=== PATIENT | male | born 1945 | race Caucasian/White ===

== ENCOUNTER 2017-11-08 09:42 | Inpatient (IN) | payer MEDICARE, OTHER ==
[~2017-11-08 09:42] MED LIST: ETOMIDATE 20 MG INJ; SUCCINYLCHOLINE CHLORIDE 100 MG/5 ML SYG IV
[2017-11-08] MEDS: HYDROmorphONE 1 MG/ML SYG IV (11:56)
[2017-11-08] MEDS: SOD CHLORIDE 0.9% 1,000 ML IV ×2 (11:56→16:55)
[2017-11-08] MEDS: ONDANSETRON 4 MG INJ IV (11:56)
[2017-11-08] MEDS ORDERED: LORAZEPAM 2 MG INJ ×2 (12:09→12:15)
[2017-11-08] MEDS: SOD CHLORIDE 0.9% 100 ML ×2 (12:09→15:12)
[2017-11-08] MEDS: IODIXANOL LOCM 100 ML BTL ×2 (12:09→15:12)
[2017-11-08] MEDS: SUCCINYLCHOLINE CHLORIDE 100 MG/5 ML SYG IV (12:35)
[2017-11-08] MEDS: ETOMIDATE 20 MG INJ IV (12:35)
[2017-11-08 13:01] LABS: ADD MAN DIFF? NO
[2017-11-08 13:02] LABS: BASOPHIL # 0.1 10^3/ul (0.0-0.1); BASOPHILS % 0.5 % (0.0-2.0); EOSINOPHILS % 0.1 % (0.0-7.0); HEMATOCRIT 42.5 % (42.0-52.0); LYMPHOCYTES # 2.2 10^3/ul (0.8-2.9); LYMPHOCYTES % 11.6 % (15.0-51.0); MEAN CORPUSCULAR HEMOGLOBIN 29.4 pg (29.0-33.0); MEAN CORPUSCULAR HGB CONC 32.9 g/dl (32.0-37.0); MEAN CORPUSCULAR VOLUME 89.3 fl (82.0-101.0); MEAN PLATELET VOLUME 11.5 fl (7.4-10.4); MONOCYTES % 5.1 % (0.0-11.0); NEUTROPHIL # 15.3 10^3/ul (1.6-7.5); NEUTROPHILS % 81.9 % (39.0-77.0); PLATELET COUNT 458 10^3/UL (140-415); RED BLOOD COUNT 4.76 10^6/ul (4.70-6.10); RED CELL DISTRIBUTION WIDTH 13.7 % (11.5-14.5)
[2017-11-08 13:02] LABS: WHITE BLOOD COUNT 18.6 10^3/ul (4.8-10.8)
[2017-11-08] MEDS: VANCOMYCIN 1 GM (PMX) 250 ML IVPB (13:30)
[2017-11-08] MEDS: LORAZEPAM 2 MG INJ IV ×2 (13:30)
[2017-11-08 13:33] LABS: INR 1.08; PROTIME 14.1 Sec (11.9-14.9); PT RATIO 1.1
[2017-11-08 13:35] LABS: PARTIAL THROMBOPLASTIN TIME 32.1 Sec (25.0-35.0)
[2017-11-08 13:45] LABS: ALANINE AMINOTRANSFERASE 36 IU/L (13-69); ALBUMIN 4.2 g/dl (3.3-4.9); ALKALINE PHOSPHATASE 103 IU/L (42-121); ANION GAP 23 (8-16); ASPARTATE AMINO TRANSFERASE 24 IU/L (15-46); BILIRUBIN,INDIRECT 1.3 mg/dl (0-1.1); BILIRUBIN,TOTAL 1.3 mg/dl (0.2-1.3); BLOOD UREA NITROGEN 27 mg/dl (7-20); CALCIUM 9.2 mg/dl (8.4-10.2); CARBON DIOXIDE 21 mmol/L (21-31); CHLORIDE 95 mmol/L (97-110); CREATININE 1.31 mg/dl (0.61-1.24); GLUCOSE 280 mg/dl (70-220); LIPASE 24 U/L (23-300); POTASSIUM 3.9 mmol/L (3.5-5.1); SODIUM 135 mmol/L (135-144); TOTAL PROTEIN 7.2 g/dl (6.1-8.1)
[2017-11-08 13:56] LABS: TROPONIN-I 0.017 ng/ml (0.00-0.12)
[2017-11-08 14:01] LABS: AMYLASE < 30 U/L (11-123)
[2017-11-08 14:30] LABS: CREATINE KINASE 71 IU/L (23-200)
[2017-11-08 14:42] LABS: CK INDEX 2.1; CK-MB 1.46 ng/ml (0.0-2.4); TROPONIN-I 0.014 ng/ml (0.00-0.12)
[2017-11-08 15:15] LABS: ADD UMIC YES; UR ASCORBIC ACID NEGATIVE (NEGATIVE); UR BACTERIA MANY /HPF (NONE SEEN); UR BILIRUBIN (Dip) NEGATIVE (NEGATIVE); UR BLOOD (Dip) 2+ mg/dL (NEGATIVE); UR CLARITY CLOUDY (CLEAR); UR COLOR AMBER (YELLOW); UR GLUCOSE (Dip) 3+ mg/dL (NEGATIVE); UR HYALINE CAST FEW /HPF (NONE SEEN); UR KETONES (Dip) NEGATIVE (NEGATIVE); UR LEUKOCYTE ESTERASE (Dip) 3+ Leu/ul (NEGATIVE); UR MUCUS FEW /HPF (NONE SEEN); UR NITRITE (Dip) NEGATIVE (NEGATIVE); UR RBC 14 /HPF (0-5); UR SPECIFIC GRAVITY (Dip) 1.036 (1.003-1.030); UR TOTAL PROTEIN (Dip) 2+ mg/dl (NEGATIVE); UR UROBILINOGEN (Dip) 1+ mg/dL (NEGATIVE); UR WBC 125 /HPF (0-5)
[2017-11-08] MEDS: SODIUM CHLORIDE 0.9% 1L BAG IV* (15:15)
[2017-11-08] MEDS: PROPOFOL 100 ML IV (15:15)
[2017-11-08] MEDS: CEFEPIME 2GM/50 ML (PMX) 50 ML IVPB (15:16)
[2017-11-08 15:47] LABS: AADO2 Arterial 186.8 mmHg (7.0-24.0); Allen Test ACCEPTAB; Arterial Base Excess -1.7 mmol/L (-3.0-3); Arterial Blood Gas Oxygen Sat 99.5 mmHG (95.0-100.0); Arterial COHb 0.3 % (0.0-3.0); Arterial Fraction of Oxyhgb 98.6 % (93.0-99.0); Arterial HCO3 23.4 mmol/L (22.0-26.0); Arterial MetHb 0.6 % (0.0-1.5); Arterial Total Hemglobin 12.5 g/dl (12.0-18.0); MODE VENT - AC; Site Right Radial
[2017-11-08 15:50] LABS: LACTIC ACID 1.9 mmol/L (0.5-2.0)
[2017-11-08] MEDS ORDERED: NACL 0.9% 3 ML SYG IV (17:00)
[2017-11-08] MEDS ORDERED: ONDANSETRON 4 MG INJ IV (17:00)
[2017-11-08] MEDS: CEFTRIAXONE 1 GM/50 ML (PMX) 50 ML IVPB (19:35)
[2017-11-09] MEDS: PROPOFOL 100 ML IV ×5 (02:31→20:58)
[2017-11-09 04:34] LABS: WHITE BLOOD COUNT 14.1 10^3/ul (4.8-10.8)
[2017-11-09 04:34] LABS: ABNORMAL IP MESSAGE 1; HEMATOCRIT 31.6 % (42.0-52.0); MEAN CORPUSCULAR HEMOGLOBIN 29.8 pg (29.0-33.0); MEAN CORPUSCULAR HGB CONC 34.8 g/dl (32.0-37.0); MEAN CORPUSCULAR VOLUME 85.6 fl (82.0-101.0); MEAN PLATELET VOLUME 11.5 fl (7.4-10.4); PLATELET COUNT 279 10^3/UL (140-415); POSITIVE DIFF @See below; RED BLOOD COUNT 3.69 10^6/ul (4.70-6.10); RED CELL DISTRIBUTION WIDTH 14.2 % (11.5-14.5)
[2017-11-09 04:48] LABS: ALANINE AMINOTRANSFERASE 36 IU/L (13-69); ALBUMIN 2.6 g/dl (3.3-4.9); ALBUMIN/GLOBULIN RATIO 1.04; ALKALINE PHOSPHATASE 63 IU/L (42-121); ANION GAP 13 (8-16); ASPARTATE AMINO TRANSFERASE 19 IU/L (15-46); BILIRUBIN,INDIRECT 0.9 mg/dl (0-1.1); BILIRUBIN,TOTAL 0.9 mg/dl (0.2-1.3); BLOOD UREA NITROGEN 31 mg/dl (7-20); CALCIUM 7.8 mg/dl (8.4-10.2); CARBON DIOXIDE 20 mmol/L (21-31); CHLORIDE 104 mmol/L (97-110); CHOLESTEROL 55 mg/dl (100-200); CREATININE 1.05 mg/dl (0.61-1.24); GLUCOSE 248 mg/dl (70-220); HDL CHOLESTEROL 18 mg/dl (31-75); LDL CHOLESTEROL,CALCULATED 18 mg/dl; MAGNESIUM 1.4 mg/dl (1.7-2.5); PHOSPHORUS 2.4 mg/dl (2.5-4.9); POTASSIUM 3.7 mmol/L (3.5-5.1); SODIUM 133 mmol/L (135-144); TOTAL PROTEIN 5.1 g/dl (6.1-8.1); TRIGLYCERIDES 96 mg/dl (0-149)
[2017-11-09 05:07] LABS: ADD MAN DIFF? YES
[2017-11-09] MEDS: PANTOPRAZOLE 40 MG INJ IV (06:24)
[2017-11-09] MEDS: SOD CHLORIDE 0.9% 1,000 ML IV ×3 (06:25→14:42)
[2017-11-09] MEDS ORDERED: MAGNESIUM SULFATE (GM) 50% 2 ML INJ IM (07:00)
[2017-11-09] MEDS: MAGNESIUM SULFATE 3 GM in DEXTROSE 5% 100 ML IVPB (08:17)
[2017-11-09 08:36] LABS: ANISOCYTOSIS 1+ (0-0); BAND NEUTROPHILS #M 1.4 10^3/ul (0.0-0.6); BAND NEUTROPHILS % (M) 10 % (0-4); BASOPHIL #M 0.1 10^3/ul (0.0-0.0); BASOPHILS % (M) 1 % (0-2); BURR CELLS 1+ (0-0); GIANT THROMBO% (M) 3 % (0-0); LYMPHOCYTES #M 2.5 10^3/ul (0.8-2.9); LYMPHOCYTES % (M) 18 % (15-51); MICROCYTOSIS 1+ (0-0); MONOCYTE #M 0.7 10^3/ul (0.3-0.9); MONOCYTES % (M) 5 % (0-11); PLATELET ESTIMATE NORMAL; REACTIVE LYMPHOCYTES #M 0.5 10^3/ul (0.0-0.0); REACTIVE LYMPHOCYTES% (M) 4 % (0-0); SEG NEUT #M 8.9 10^3/ul (1.6-7.5); SEGMENTED NEUTROPHILS (M) % 62 % (39-77); SMUDGE%M 5 % (0-0)
[2017-11-09 09:04] LABS: HEMOGLOBIN A1C 8.9 % (0-5.9)
[2017-11-09] MEDS: INSULIN GLARGINE [LANtus] 3 ML PEN SC ×2 (12:00→12:58)
[2017-11-09] MEDS ORDERED: GLUCOSE GEL 15 GRAM TUBE PO ×2 (12:00)
[2017-11-09] MEDS ORDERED: DEXTROSE 50% 50 ML SYRINGE IV ×2 (12:00)
[2017-11-09] MEDS ORDERED: GLUCOSE GEL 15 GRAM TUBE BUCCAL (12:00)
[2017-11-09] MEDS ORDERED: GLUCAGON 1 MG INJ IM (12:00)
[2017-11-09] MEDS: INSULIN ASPART [NOVOLOG] 3 ML PEN SC ×3 (13:00→21:07)
[2017-11-09] MEDS: CEFTRIAXONE 1 GM/50 ML (PMX) 50 ML IVPB (17:07)
[2017-11-09] MEDS: TAMSULOSIN (SR) 0.4 MG CAP PO (20:58)
[2017-11-10] MEDS: PROPOFOL 100 ML IV ×2 (01:00→06:26)
[2017-11-10] MEDS: ACCU-CHEK XX (02:19)
[2017-11-10] MEDS: INSULIN ASPART [NOVOLOG] 3 ML PEN SC ×6 (02:46→20:49)
[2017-11-10] MEDS: SOD CHLORIDE 0.9% 1,000 ML IV ×3 (02:47→12:46)
[2017-11-10] MEDS: PANTOPRAZOLE 40 MG INJ IV (05:32)
[2017-11-10 06:16] LABS: ADD MAN DIFF? NO
[2017-11-10 06:18] LABS: WHITE BLOOD COUNT 11.1 10^3/ul (4.8-10.8)
[2017-11-10 06:18] LABS: BASOPHIL # 0.1 10^3/ul (0.0-0.1); BASOPHILS % 0.4 % (0.0-2.0); EOSINOPHILS # 0.1 10^3/ul (0.0-0.5); EOSINOPHILS % 0.9 % (0.0-7.0); HEMOGLOBIN 11.3 g/dl (14.0-18.0); MEAN CORPUSCULAR HEMOGLOBIN 29.4 pg (29.0-33.0); MEAN CORPUSCULAR HGB CONC 34.2 g/dl (32.0-37.0); MEAN CORPUSCULAR VOLUME 85.9 fl (82.0-101.0); MEAN PLATELET VOLUME 11.8 fl (7.4-10.4); MONOCYTE # 1.3 10^3/ul (0.3-0.9); MONOCYTES % 11.3 % (0.0-11.0); NEUTROPHIL # 8.7 10^3/ul (1.6-7.5); PLATELET COUNT 281 10^3/UL (140-415); RED BLOOD COUNT 3.84 10^6/ul (4.70-6.10); RED CELL DISTRIBUTION WIDTH 14.3 % (11.5-14.5)
[2017-11-10 06:32] LABS: LACTIC ACID 1.1 mmol/L (0.5-2.0)
[2017-11-10 06:45] LABS: ANION GAP 13 (8-16); BLOOD UREA NITROGEN 19 mg/dl (7-20); CARBON DIOXIDE 19 mmol/L (21-31); CHLORIDE 110 mmol/L (97-110); CREATININE 0.82 mg/dl (0.61-1.24); GLUCOSE 150 mg/dl (70-220); MAGNESIUM 2.4 mg/dl (1.7-2.5); PHOSPHORUS 2.4 mg/dl (2.5-4.9); POTASSIUM 3.5 mmol/L (3.5-5.1); SODIUM 138 mmol/L (135-144)
[2017-11-10] MEDS: INSULIN GLARGINE [LANtus] 3 ML PEN SC (08:39)
[2017-11-10 12:32] LABS: AADO2 Arterial 62.8 mmHg (7.0-24.0); Allen Test ACCEPTAB; Arterial Base Excess -3.2 mmol/L (-3.0-3); Arterial COHb 0.3 % (0.0-3.0); Arterial Fraction of Oxyhgb 97.4 % (93.0-99.0); Arterial HCO3 20.6 mmol/L (22.0-26.0); Arterial MetHb 0.3 % (0.0-1.5); Arterial Total Hemglobin 12.7 g/dl (12.0-18.0); Arterial pCO2 33.1 mmhg (35-45); Blood Gas PS 10; MODE VENT - CPAP; Site Right Radial
[2017-11-10] MEDS: CEFTRIAXONE 1 GM/50 ML (PMX) 50 ML IVPB (16:39)
[2017-11-10] MEDS: hydrALAzine 20 MG INJ IV (20:38)
[2017-11-10] MEDS: morphine 2 MG INJ IV (21:45)
[2017-11-11] MEDS: hydrALAzine 20 MG INJ IV ×3 (00:37→12:50)
[2017-11-11] MEDS: INSULIN ASPART [NOVOLOG] 3 ML PEN SC ×6 (01:00→20:54)
[2017-11-11] MEDS: ACCU-CHEK XX (01:55)
[2017-11-11] MEDS: SOD CHLORIDE 0.9% 1,000 ML IV ×2 (04:46→13:39)
[2017-11-11 05:44] LABS: ADD MAN DIFF? NO
[2017-11-11 06:03] LABS: WHITE BLOOD COUNT 10.9 10^3/ul (4.8-10.8)
[2017-11-11 06:03] LABS: BASOPHIL # 0.1 10^3/ul (0.0-0.1); BASOPHILS % 0.5 % (0.0-2.0); EOSINOPHILS # 0.2 10^3/ul (0.0-0.5); EOSINOPHILS % 2.2 % (0.0-7.0); HEMATOCRIT 35.1 % (42.0-52.0); HEMOGLOBIN 11.7 g/dl (14.0-18.0); LYMPHOCYTES # 1.2 10^3/ul (0.8-2.9); LYMPHOCYTES % 10.6 % (15.0-51.0); MEAN CORPUSCULAR HGB CONC 33.3 g/dl (32.0-37.0); MEAN CORPUSCULAR VOLUME 87.1 fl (82.0-101.0); MEAN PLATELET VOLUME 11.6 fl (7.4-10.4); MONOCYTE # 0.9 10^3/ul (0.3-0.9); MONOCYTES % 8.5 % (0.0-11.0); NEUTROPHIL # 8.5 10^3/ul (1.6-7.5); NEUTROPHILS % 77.8 % (39.0-77.0); PLATELET COUNT 328 10^3/UL (140-415); RED BLOOD COUNT 4.03 10^6/ul (4.70-6.10); RED CELL DISTRIBUTION WIDTH 13.8 % (11.5-14.5)
[2017-11-11] MEDS: PANTOPRAZOLE 40 MG INJ IV (06:07)
[2017-11-11 06:20] LABS: ANION GAP 13 (8-16); BLOOD UREA NITROGEN 13 mg/dl (7-20); CALCIUM 8.4 mg/dl (8.4-10.2); CARBON DIOXIDE 20 mmol/L (21-31); CHLORIDE 110 mmol/L (97-110); CREATININE 0.67 mg/dl (0.61-1.24); GLUCOSE 100 mg/dl (70-220); POTASSIUM 3.2 mmol/L (3.5-5.1); SODIUM 140 mmol/L (135-144)
[2017-11-11] MEDS: POTASSIUM CHLORIDE 100 ML IVPB (09:31)
[2017-11-11] MEDS: INSULIN GLARGINE [LANtus] 3 ML PEN SC (09:33)
[2017-11-11] MEDS: morphine 2 MG INJ IV (12:50)
[2017-11-11] MEDS ORDERED: LORAZEPAM 2 MG INJ IV (15:30)
[2017-11-11] MEDS: CEFTRIAXONE 1 GM/50 ML (PMX) 50 ML IVPB (17:16)
[2017-11-11] MEDS: ATORVASTATIN 20 MG TAB PO (20:49)
[2017-11-12] MEDS: ACCU-CHEK XX (02:00)
[2017-11-12] MEDS: INSULIN ASPART [NOVOLOG] 3 ML PEN SC ×6 (02:03→20:43)
[2017-11-12] MEDS: PANTOPRAZOLE 40 MG INJ IV (05:30)
[2017-11-12 05:58] LABS: ADD MAN DIFF? NO
[2017-11-12 06:10] LABS: WHITE BLOOD COUNT 9.9 10^3/ul (4.8-10.8)
[2017-11-12 06:10] LABS: BASOPHIL # 0.1 10^3/ul (0.0-0.1); BASOPHILS % 0.7 % (0.0-2.0); EOSINOPHILS # 0.3 10^3/ul (0.0-0.5); EOSINOPHILS % 3.1 % (0.0-7.0); HEMATOCRIT 34.6 % (42.0-52.0); HEMOGLOBIN 11.4 g/dl (14.0-18.0); LYMPHOCYTES # 1.5 10^3/ul (0.8-2.9); LYMPHOCYTES % 15.2 % (15.0-51.0); MEAN CORPUSCULAR HEMOGLOBIN 29.1 pg (29.0-33.0); MEAN CORPUSCULAR HGB CONC 32.9 g/dl (32.0-37.0); MEAN CORPUSCULAR VOLUME 88.3 fl (82.0-101.0); MEAN PLATELET VOLUME 11.2 fl (7.4-10.4); MONOCYTE # 0.9 10^3/ul (0.3-0.9); MONOCYTES % 8.8 % (0.0-11.0); NEUTROPHIL # 7.1 10^3/ul (1.6-7.5); NEUTROPHILS % 71.8 % (39.0-77.0); PLATELET COUNT 381 10^3/UL (140-415); RED BLOOD COUNT 3.92 10^6/ul (4.70-6.10)
[2017-11-12 06:48] LABS: ANION GAP 10 (8-16); BLOOD UREA NITROGEN 22 mg/dl (7-20); CALCIUM 8.5 mg/dl (8.4-10.2); CARBON DIOXIDE 22 mmol/L (21-31); CHLORIDE 111 mmol/L (97-110); CREATININE 0.81 mg/dl (0.61-1.24); GLUCOSE 172 mg/dl (70-220); PHOSPHORUS 2.4 mg/dl (2.5-4.9); POTASSIUM 3.5 mmol/L (3.5-5.1); SODIUM 139 mmol/L (135-144)
[2017-11-12] MEDS: ASPIRIN 81 MG TAB PO (08:15)
[2017-11-12] MEDS: INSULIN GLARGINE [LANtus] 3 ML PEN SC (08:19)
[2017-11-12] MEDS ORDERED: morphine LIQ (10 MG/5 ML) CUP PO (16:00)
[2017-11-12] MEDS: CEFTRIAXONE 1 GM/50 ML (PMX) 50 ML IVPB (17:11)
[2017-11-12] MEDS: ATORVASTATIN 20 MG TAB PO (20:38)
[2017-11-12] MEDS: AMLODIPINE 10 MG TAB PO (21:26)
[2017-11-13] MEDS: ACCU-CHEK XX (02:42)
[2017-11-13] MEDS: PANTOPRAZOLE 40 MG INJ IV (05:58)
[2017-11-13] MEDS: INSULIN GLARGINE [LANtus] 3 ML PEN SC (07:56)
[2017-11-13] MEDS: INSULIN ASPART [NOVOLOG] 3 ML PEN SC ×3 (07:57→17:47)
[2017-11-13] MEDS: ASPIRIN 81 MG TAB PO (08:29)
[2017-11-13] MEDS: AMLODIPINE 10 MG TAB PO (08:29)
[2017-11-13] MEDS: LISINOPRIL 5 MG TAB PO (10:55)
[2017-11-13] MEDS: CEFTRIAXONE 1 GM/50 ML (PMX) 50 ML IVPB (17:38)
== END 2017-11-13 18:50 | disposition home or self-care (01) | DRG 871 ==
LOC: ICU 15:52 → MS2 11-11 18:15 → E/R 09:42 → ICU 11-09 08:04
PROC: 0BH17EZ Insertion of Endotracheal Airway into Trachea, Via Natural or Artificial Opening (ICD-10-PCS; principal; 2017-11-08)
PROC: 5A1945Z Respiratory Ventilation, 24-96 Consecutive Hours (ICD-10-PCS; 2017-11-08)
PROC: 009U3ZZ Drainage of Spinal Canal, Percutaneous Approach (ICD-10-PCS; 2017-11-08)
DX: A41.9 Sepsis, unspecified organism (principal); J96.00 Acute respiratory failure, unspecified whether with hypoxia or hypercapnia; G93.41 Metabolic encephalopathy; N17.9 Acute kidney failure, unspecified; N12 Tubulo-interstitial nephritis, not specified as acute or chronic; N39.0 Urinary tract infection, site not specified; E11.65 Type 2 diabetes mellitus with hyperglycemia; R65.20 Severe sepsis without septic shock; N40.0 Benign prostatic hyperplasia without lower urinary tract symptoms; M54.9 Dorsalgia, unspecified; I10 Essential (primary) hypertension; B96.20 Unspecified Escherichia coli [E. coli] as the cause of diseases classified elsewhere; F17.210 Nicotine dependence, cigarettes, uncomplicated; Z79.4 Long term (current) use of insulin; Z91.81 History of falling; Z86.73 Personal history of transient ischemic attack (TIA), and cerebral infarction without residual deficits; Z79.82 Long term (current) use of aspirin
CPT/HCPCS: 31500; 36600; 70450; 71045; 71275; 74178; 76775; 80048; 80053; 80061; 81001; 82150; 82550; 82553; 82803; 82962; 83036; 83605; 83690; 83735; 84100; 84484; 85025; 85610; 85730; 87040; 87081; 87086; 93005; 93970; 94002; 94003; 94770; 96374; 96375; 97162; 99291-25

== ENCOUNTER 2017-11-29 09:02 | Emergency (ER) | payer MEDICARE ==
[2017-11-29 16:19] LABS: ADD MAN DIFF? NO
[2017-11-29 16:23] LABS: WHITE BLOOD COUNT 8.1 10^3/ul (4.8-10.8)
[2017-11-29 16:23] LABS: BASOPHIL # 0.1 10^3/ul (0.0-0.1); BASOPHILS % 1.5 % (0.0-2.0); EOSINOPHILS # 0.4 10^3/ul (0.0-0.5); EOSINOPHILS % 4.4 % (0.0-7.0); HEMOGLOBIN 13.1 g/dl (14.0-18.0); LYMPHOCYTES # 2.1 10^3/ul (0.8-2.9); LYMPHOCYTES % 26.2 % (15.0-51.0); MEAN CORPUSCULAR HEMOGLOBIN 29.2 pg (29.0-33.0); MEAN CORPUSCULAR HGB CONC 32.8 g/dl (32.0-37.0); MEAN CORPUSCULAR VOLUME 89.3 fl (82.0-101.0); MEAN PLATELET VOLUME 10.3 fl (7.4-10.4); MONOCYTE # 0.6 10^3/ul (0.3-0.9); MONOCYTES % 7.4 % (0.0-11.0); NEUTROPHIL # 4.9 10^3/ul (1.6-7.5); NEUTROPHILS % 60.4 % (39.0-77.0); PLATELET COUNT 544 10^3/UL (140-415); RED BLOOD COUNT 4.48 10^6/ul (4.70-6.10); RED CELL DISTRIBUTION WIDTH 14.1 % (11.5-14.5)
[2017-11-29] MEDS: ASPIRIN 325 MG TAB PO (16:23)
[2017-11-29 16:41] LABS: ANION GAP 16 (8-16); BLOOD UREA NITROGEN 24 mg/dl (7-20); CALCIUM 9.3 mg/dl (8.4-10.2); CARBON DIOXIDE 24 mmol/L (21-31); CHLORIDE 104 mmol/L (97-110); CREATININE 0.96 mg/dl (0.61-1.24); GLUCOSE 180 mg/dl (70-220); POTASSIUM 5.1 mmol/L (3.5-5.1); SODIUM 139 mmol/L (135-144)
[2017-11-29 16:53] LABS: B-TYPE NATRIURETIC PEPTIDE 392 PG/ML (0-125); TROPONIN-I < 0.012 ng/ml (0.00-0.12)
== END 2017-11-29 18:55 | disposition home or self-care (01) ==
LOC: E/R 09:02
DX: D69.6 Thrombocytopenia, unspecified (principal); R40.2252 Coma scale, best verbal response, oriented, at arrival to emergency department; I10 Essential (primary) hypertension; R40.2142 Coma scale, eyes open, spontaneous, at arrival to emergency department; R40.2362 Coma scale, best motor response, obeys commands, at arrival to emergency department; Z79.84 Long term (current) use of oral hypoglycemic drugs
CPT/HCPCS: 71045; 80048; 83880; 84484; 85025; 93005; 99285-25